=== PATIENT | female | born 1980 ===

== ENCOUNTER 2020-09-09 06:54 | Outpatient (NON) | payer BC, SELFPAY ==
[2020-09-09 22:42] LABS: SARS-CoV-2 RNA PCR Negative
== END 2020-09-09 06:55 ==
LOC: ANHCOVIDDT 06:54
PROVIDERS: PCP Family Medicine; Visit Provider Family Medicine
DX: Z20.822 Contact with and (suspected) exposure to COVID-19 (principal); R68.83 Chills (without fever); R53.83 Other fatigue; R51.9 Headache, unspecified
CPT/HCPCS: C9803; U0003; U0005

== ENCOUNTER 2020-10-04 06:51 | Outpatient (NON) | payer BC, SELFPAY ==
[2020-10-05 12:41] LABS: SARS-CoV-2 RNA PCR Negative
== END 2020-10-04 06:52 ==
LOC: ANHCOVIDDT 06:53
PROVIDERS: PCP Family Medicine; Visit Provider Family Medicine
DX: Z20.822 Contact with and (suspected) exposure to COVID-19 (principal)
CPT/HCPCS: C9803; U0003; U0005

== ENCOUNTER → 2021-12-21 10:26 | Outpatient (REF) | payer BC, SELFPAY | LOC: ANHLAB 10:26 | PROVIDERS: PCP Family Medicine; Visit Provider Nurse Practitioner | DX: L98.9 Disorder of the skin and subcutaneous tissue, unspecified (principal) | CPT/HCPCS: 88305; 88342 ==

== ENCOUNTER 2022-08-14 08:00 | Outpatient (NON) | payer BC, SELFPAY | END 2022-08-14 08:01 | disposition home or self-care (01) | LOC: ANHLAB 08-15 13:20 | PROVIDERS: PCP Family Medicine; Visit Provider Nurse Practitioner | DX: D49.2 Neoplasm of unspecified behavior of bone, soft tissue, and skin (principal) | CPT/HCPCS: 88305 ==

== ENCOUNTER 2023-05-24 10:07 | Emergency (ER) | payer BC, SELFPAY ==
[2023-05-24] VITALS (9 sets, daily range): BP systolic 110–140; BP diastolic 60–85; PULSE 49–67; RESP 10–17; TEMP 37.3; O2SAT 88–100
--- NOTE | ~2023-05-24 | XR_ITS ---
EXAMINATION: XR chest 2V 05/24/2023 11:04 INDICATION: Chest pain PROCEDURE: PA and lateral views the chest COMPARISON: No prior studies for comparison. FINDINGS: The lungs are clear. The cardiomediastinal silhouette is within normal limits. There are no pleural effusions. There is no pneumothorax suspected. IMPRESSION: 1: NO ACUTE CARDIOPULMONARY DISEASE. Reviewed, dictated and finalized at location B.
--- NOTE | 2023-05-24 10:09 | ECG_ITS ---
Measurements Intervals [place] Rate: 66 P: 77 RI: 187 QRS: 60 QRSD: 81 T: 59 QT: 359 QTc: 378 Interpretive Statements SINUS RHYTHM POSSIBLE LEFT ATRIAL ENLARGEMENT CANNOT RULE OUT SEPTAL INFARCT, AGE INDETERMINATE BASELINE ARTIFACT- I, III, AVL ABNORMAL ECG NO PREVIOUS ECG AVAILABLE FOR COMPARISON Electronically Signed On 05-24-2023 10:25:33 CDT by Bruce Rivas D.O.
[2023-05-24 10:46] LABS: Basophils Percent Auto 0.4 % (0.2-1.2); Eosinophils Absolute Auto 0.1 K/mm3 (0-0.3); Eosinophils Percent Auto 0.5 % (0-4.4); Hematocrit 44.3 % (37.0-47.0); Hemoglobin 14.3 g/dL (12.0-15.0); Immature Granulocyte Absolute 0.05 K/mm3 (0.00-0.031); Immature Granulocyte Percent A 0.5 % (0-0.5); Lymphocytes Absolute Auto 3.28 K/mm3 (0.9-3.2); Lymphocytes Percent Auto 30.6 % (18.3-44.2); Mean Corpuscular HGB Conc 32.3 g/dl (32-36); Mean Corpuscular Volume 93.1 fl (80-100); Mean Platelet Volume 8.9 fl (7.4-10.4); Monocytes Absolute Auto 0.3 K/mm3 (0.1-0.6); Monocytes Percent Auto 3.2 % (2.6-8.5); Neutrophils Percent Auto 64.8 % (45.5-73.1); Platelet Count Result 294 k/mm3 (150-375); Red Blood Count 4.76 M/mm3 (4.2-5.4); White Blood Count 10.7 K/mm3 (4.5-10.0)
[2023-05-24 10:56] LABS: Alanine Aminotransferase 20 U/L (6-35); Albumin Level 4.6 g/dL (3.5-5.1); Alkaline Phosphatase 38 U/L (38-126); Anion Gap 7 mmol/L (8-16); Aspartate Amino Transferase 26 U/L (14-36); Bilirubin,Total 0.5 mg/dL (0.2-1.3); Blood Urea Nitrogen 14 mg/dL (7-17); Calcium 9.1 mg/dL (8.4-10.2); Carbon Dioxide 22 mmol/L (22-30); Chloride 106 mmol/L (98-107); Estimated CRCL calculation 77 ml/min; Estimated Glomerular Filt Rate > 60; Glucose 92 mg/dL (65-110); Lipase 182 U/L (23-300); Prothrombin Time 13.4 Seconds (11.1-14.7); Sodium 135 mmol/L (137-145)
[2023-05-24 10:57] LABS: Partial Thromboplastin Time 22.9 SECONDS (22.3-36.8)
[2023-05-24 11:08] LABS: Troponin I < 0.012 ng/mL (0.000-0.034)
[2023-05-24] MEDS: ASPIRIN 81 MG CHEWABLE TABLET 324 MG PO (12:10)
[2023-05-24] MEDS: FAMOTIDINE 20 MG/2 ML VIAL IV PUSH (12:10)
--- NOTE | 2023-05-24 12:10 | ED.GENADULT ---
HPI - General Adult General Chief complaint: Chest Pain Stated complaint: chest pain - radiates to left arm Time Seen by Provider: 05/24/23 11:42 History of Present Illness HPI narrative: Leigh Taylor is a 42 y/o female without any known PMHx who presents today with reports of working out and then started to have mid sternal chest pressure and tingling in her left arm. She denies shortness of breath, she states she has recently been belching more and feels more gassy. She thought it might be GERD she called her PCP who told her to come here. Related Data Home Medications Medication Instructions Recorded Confirmed levonorgestrel 0.15 mg-ethinyl 1 tablet PO DAILY 10/09/22 10/09/22 estradiol 0.03 mg tablet ([place] (28)) Allergies Allergy/AdvReac Type Severity Reaction Status Date / Time No Known Allergies Allergy Verified 05/24/23 10:37 Review of Systems Review of Systems: CONSTITUTIONAL: Denies fever, chills, or sweats. EYES: Denies visual changes, redness, or discharge. ENT: Denies rhinorrhea, congestion, sore throat, or otalgia. CARDIOVASCULAR: Reports mid chest pain/pressure, denies palpitations, or edema. RESPIRATORY: Denies cough or dyspnea. GASTROINTESTINAL: Denies abdominal pain, nausea, vomiting, or diarrhea. GENITOURINARY: Denies dysuria or hematuria. SKIN: Denies rash or itching. MUSCULOSKELETAL: Denies back pain, joint pain, or myalgia. NEUROLOGIC: Denies headache, numbness, dizziness, or weakness. PSYCHIATRIC: Denies anxiety or depression. [facility] Past Medical History Medical History Actinic keratosis Irritable bowel syndrome Paronychia of finger of left hand Primary insomnia Social History Social History Smoking status: Never smoker Alcohol intake: current Substance use: never Lack of Transportation: No Lack of Food: Never True Current Housing: I Have Housing Concerned About Future Housing: No Difficulty Paying Gas/Electric Bills: No Difficulty Paying for Meds: No Currently Unemployed: No Education: Bachelor's Degree Difficulty w/ Childcare or Family Care: No Living arrangements: with family Gender identity (if verbalized by the patient): Female Sexual Orientation (if Verbalized by the Patient): Straight or Heterosexual Exam Narrative: GENERAL: Well-appearing, well-nourished, and in no acute distress. HEAD: Normocephalic, atraumatic. EYES: PERRLA and EOMI. ENT: Nares clear, no rhinorrhea or epistaxis. Mucous membranes moist. Oropharynx without tonsillar hypertrophy exudate or other lesions. NECK: Supple. No adenopathy or masses. No carotid bruits or JVD CHEST: Clear to auscultation. No respiratory distress. No wheezes rales or rhonchi HEART: Regular rate and rhythm. No murmur heard. Normal peripheral pulses. ABDOMEN: Soft, nontender, nondistended, normal active bowel sounds. EXTREMITIES: Normal range of motion. No edema. SKIN: Warm, dry, no rash. NEURO: No focal deficits. Alert and oriented x3. PSYCH: Normal mood and affect. Course Vital Signs Vital signs: Vital Signs Temperature 37.3 C 05/24/23 10:13 Pulse Rate 66 05/24/23 10:13 Respiratory Rate 17 05/24/23 10:13 Blood Pressure 122/71 05/24/23 10:13 Pulse Oximetry 100 05/24/23 10:13 Oxygen Delivery Room Air 05/24/23 10:13 Temperature 37.3 C 05/24/23 10:13 Pulse Rate 61 05/24/23 14:30 Respiratory Rate 10 L 05/24/23 14:30 Blood Pressure 110/78 05/24/23 14:30 Pulse Oximetry 98 05/24/23 14:30 Oxygen Delivery Room Air 05/24/23 10:30 Medical Decision Making MDM Narrative Medical decision making narrative: On exam pt is alert and oriented X 4 she states that with the mid sternal chest discomfort/ pressure she experienced some left arm tingling/ neuro exam intact no focal weakness noted on exam She states that her chest tightness/ p
[2023-05-24 12:31] LABS: D Dimer < 0.27 ug/mL (<0.48)
[2023-05-24 12:31] LABS: Appearance Urine Clear (Clear); Bacteria Urine None Seen /hpf; Bilirubin Urine Negative (Negative); Blood Urine Trace (Negative); Color Urine Yellow (Yellow); Glucose Urine UA Negative (Negative); Ketones Urine Negative (Negative); Leukocyte Esterase Ur Negative LEU/UL (Negative); Nitrate Urine Negative (Negative); Non Pathogenic Casts 0-2; Protein Urine Negative (Negative); RBC Urine 0-2 /hpf (0-2); Specific Grav Ur 1.007 (1.001-1.035); Squamous Epithelial Cell Urine None seen /hpf (Few); Urobilinogen Urine 0.2 mg/dL (<2.0); WBC Urine 0-5 /hpf; pH Urine 5.5 (5.0-9.0)
[2023-05-24 12:37] LABS: Add Urine Microscopic? YES
[2023-05-24 14:12] LABS: Troponin I < 0.012 ng/mL (0.000-0.034)
== END 2023-05-24 14:30 | disposition home or self-care (01) ==
PROVIDERS: Emergency Medicine; Emergency Provider Nurse Practitioner Family; PCP Family Medicine
DX: R07.89 Other chest pain (principal); K58.9 Irritable bowel syndrome, unspecified; F51.01 Primary insomnia
CPT/HCPCS: 36415; 71046; 80053; 81001; 81025; 83690; 84484; 85025; 85380; 85610; 85730; 93005; 96374; 99284; A9270